=== PATIENT | female | born 1990 | race American Indian/Alaskan Native ===

== ENCOUNTER 2019-03-04 04:46 | Emergency (ER) | payer SELFPAY ==
[2019-03-04] MEDS ORDERED: GEODON IM ONE ×2 (05:15→05:33)
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
[2019-03-04] MEDS ORDERED: ATIVAN ONE (06:28)
[2019-03-04] MEDS ORDERED: ATIVAN IM ONE (06:30)
[2019-03-04 06:35] LABS: Bilirubin,Urine NEG (Negative); Blood,Urine NEG (Negative); Color,Urine Yellow (Yellow); Hyaline Casts,Urine 1 /LPF; Mucus,Urine 3+ /HPF; Protein,Urine <15 mg/dL mg/dL (Negative); Urobilinogen,Urine < 2.0 mg/dL (<2.0)
[2019-03-04 06:44] LABS: Amphetamine Screen,Urine PRESUMPTIVE NEGATIVE; Benzodiazepines Screen,Urine PRESUMPTIVE NEGATIVE; Cocaine Screen,Urine PRESUMPTIVE NEGATIVE; Methadone Screen,Urine PRESUMPTIVE NEGATIVE; Opiate Screen,Urine PRESUMPTIVE NEGATIVE
[2019-03-04 06:57] LABS: Cannabinoid Screen,Urine PRESUMPTIVE POSITIVE
[2019-03-04 07:54] LABS: Basophils % (Auto) 0.5 % (0.0-1.8); Eosinophils % (Auto) 0.1 % (0.0-4.3); Hematocrit 36.9 % (30.3-42.9); Hemoglobin 12.1 gm/dl (10.1-14.3); Lymphocytes # (Auto) 1.3 K/mm3 (1.2-5.4); Mean Corpuscular HGB Conc 33 % (30-34); Mean Corpuscular Volume 87 fl (79-97); Monocytes # (Auto) 0.4 K/mm3 (0.0-0.8); Monocytes % (Auto) 9.5 % (0.0-7.3); Platelet Count 212 K/mm3 (140-440); Red Blood Count 4.24 M/mm3 (3.65-5.03)
[2019-03-04 08:11] LABS: BUN/Creatinine Ratio 11; Blood Urea Nitrogen 8 mg/dL (7-17); Calcium 9.5 mg/dL (8.4-10.2); Hemolysis Index 11
[2019-03-04] MEDS ORDERED: K-DUR PO ONE (08:32)
--- NOTE | 2019-03-04 14:31 | Consultation ---
History of Present Illness - Reason for Consult Consult date: 03/04/19 Reason for consult: Mental Health Evaluation Requesting physician: JONATHAN HWANG - Chief Complaint Chief complaint: "I don't know how to handle disappointment" - History of Present Psychiatric Illness 28 y.o. AA female who presented to the ER for bizarre behavior. Today the patient was calm and cooperative during the assessment. She stated that she recently broke up with her girlfriend prior to coming to the ER. She stated that the breakup "stressed" her out. She stated that she could not sleep nor did she want to engage with her family, so she was brought to the ER. She stated that relationships does something to her when they do not work out. She was asked about previous relationships, she stated, "most of them do not end well." She stated that she have a good relationship with her mother and sister, but do not communicate with her father. She stated, "I want a relationship with him." Per collateral information from her mother/sister who was at the bedside Mayra/Bridgett they both stated that the patient do not accept disappointment well. They acknowledged that the patient had a similar situation when she broke up with her former boyfriend several years ago. The deny that the patient have been to a mental brittnee facility. The patient stated that she "struggle" with anxiety. She stated that she is willing to attend therapy sessions once discharged along with her family. The patient's family have been with her in the ER since her arrival. The patient denies SI/HI's and AVH's. She denies a poor appetite and erratic sleep. She denies alcohol consumption (etoh), but acknowledge that she smoke marijuana sometimes. Medications and Allergies Allergies Allergy/AdvReac Type Severity Reaction Status Date / Time shellfish derived Allergy Hives Verified 03/04/19 04:52 Home Medications Medication Instructions Recorded Confirmed Last Taken Type No Known Home Medications [No 03/04/19 03/04/19 Unknown History Reported Home Medications] Past psychiatric history - Past Medical History Past Medical History: No medical history Past Surgical History: No surgical history - past Psychiatric treatment and history psychiatric treatment history: Hx of Unspecified Anxiety DO per the patient. Fam hx of depression. - Social History Social history: lives with family Mental Status Exam - Vital signs Last Vital Signs Temp 98.2 F 03/04/19 04:52 Pulse 107 H 03/04/19 04:52 Resp 16 03/04/19 05:10 BP 140/93 03/04/19 04:52 Pulse Ox 100 03/04/19 05:10 - Exam Narrative exam: MSE: Appearance: calm, cooperative Behavior: regular eye contact Speech: regular rate and tone Mood: "okay" Affect: congruent to mood Thought Process: linear Thought Content: denies SI/HI's and AVH's Motor Activity: ambulatory Cognition: A/O x3 Insight: appropriate Judgment: appropriate Results Result Diagrams: 03/04/19 07:33 03/04/19 07:33 Abnormal lab results 03/04/19 03/04/19 03/04/19 Range/Units 07:33 07:33 07:33 RDW (13.2-15.2) % [place] % (Auto) (0.0-7.3) % Potassium 2.9 L* (3.6-5.0) mmol/L Salicylates < 0.3 L (2.8-20.0) mg/dL Acetaminophen < 5.0 L (10.0-30.0) ug/mL 03/04/19 Range/Units 07:33 RDW 13.0 L (13.2-15.2) % [place] % (Auto) 9.5 H (0.0-7.3) % Potassium (3.6-5.0) mmol/L Salicylates (2.8-20.0) mg/dL Acetaminophen (10.0-30.0) ug/mL All other labs normal. Assessment and Plan Assessment and plan: Impression: Adjustment DO. Unspecified Anxiety DO. Cannabis Use DO. No overt psychosis with the patient. Today the patient was calm and cooperative during the assessment. DDx: R/O Mood DO, PTSD, Substance Induced Mood/Psychosis Recommendation/Plan: Rescind 1013. Discussed generalized coping skills with the patient, she verbalized understanding. Dispo: The patient can follow up with [facility] for outpatient psy services (therapy). Staffed with Dr. Willy Zambrano.
[2019-03-04 14:56] VITALS: BP 120/87
== END 2019-03-04 16:44 | disposition home or self-care (01) ==
LOC: ED 04:46
DX: F29 Unspecified psychosis not due to a substance or known physiological condition (principal); F43.20 Adjustment disorder, unspecified; F12.10 Cannabis abuse, uncomplicated; Z91.018 Allergy to other foods
CPT/HCPCS: 36415; 80048; 80307; 81001; 84703; 85025; 96372; 99284; J2060; J3486; 80320; G0480

== ENCOUNTER 2019-03-08 02:24 | Emergency (ER) | payer SELFPAY ==
[2019-03-08 04:29] LABS: Basophils % (Auto) 0.6 % (0.0-1.8); Eosinophils % (Auto) 0.2 % (0.0-4.3); Hematocrit 43.2 % (30.3-42.9); Hemoglobin 14.1 gm/dl (10.1-14.3); Lymphocytes # (Auto) 1.1 K/mm3 (1.2-5.4); Lymphocytes % (Auto) 17.2 % (13.4-35.0); Mean Corpuscular HGB Conc 33 % (30-34); Mean Corpuscular Volume 86 fl (79-97); Monocytes # (Auto) 0.5 K/mm3 (0.0-0.8); Monocytes % (Auto) 8.6 % (0.0-7.3); Platelet Count 291 K/mm3 (140-440); Red Cell Distribution Width 12.8 % (13.2-15.2)
[2019-03-08] MEDS ORDERED: ATIVAN IM PRN ×2 (04:46→04:48)
[2019-03-08] MEDS ORDERED: HALDOL IM PRN ×2 (04:46→04:48)
[2019-03-08 04:47] LABS: Amphetamine Screen,Urine PRESUMPTIVE NEGATIVE; Benzodiazepines Screen,Urine PRESUMPTIVE NEGATIVE; Cocaine Screen,Urine PRESUMPTIVE NEGATIVE; Methadone Screen,Urine PRESUMPTIVE NEGATIVE; Opiate Screen,Urine PRESUMPTIVE NEGATIVE
--- NOTE | 2019-03-08 04:48 | Event Note ---
Date: 03/08/19 Medical screening examination: 28-year-old female presenting with psychotic behavior, mutism, hyperactive, cannot care for self, recently seen in this hospital for similar symptoms, thought to have PTSD and substance-induced mood of psychosis. Apparently, there was a recent bad breakup with his significant other, which may have prompted this. In the emergency room, the patient is afebrile, anxious, has an unremarkable exam, and does not demonstrate the ability to care for herself independently, or rational thought process. Question mood disorder, [place] II versus [place] I pathology. Patient placed on a hold, 1013 executed, psychiatric consultation requested. Vital Signs 03/08/19 03/08/19 02:53 04:21 Temperature 98.4 F Pulse Rate 103 H Respiratory 18 16 Rate Blood Pressure 139/98 O2 Sat by Pulse 98 98 Oximetry
[2019-03-08 04:49] LABS: BUN/Creatinine Ratio 17; Blood Urea Nitrogen 15 mg/dL (7-17); Calcium 10.1 mg/dL (8.4-10.2); Hemolysis Index 6
[2019-03-08 04:53] LABS: Bilirubin,Urine NEG (Negative); Blood,Urine NEG (Negative); Color,Urine Amber (Yellow); Mucus,Urine 3+ /HPF
[2019-03-08 05:33] LABS: Cannabinoid Screen,Urine PRESUMPTIVE POSITIVE
--- NOTE | 2019-03-08 08:13 | Emergency Department Report ---
ED Psych HPI - General Chief Complaint: Psych Stated Complaint: AMS Time Seen by Provider: 03/08/19 08:01 Source: family, police Mode of arrival: Ambulatory - History of Present Illness Initial Comments: Doug is a 28 yo female with hx of PTSD and substance-induced psychosis who presents with bizarre behavior. She tells me that her family initiated the ED evaluation because she was "telling the truth". She denies SI/HI or hallucinations. She denies physical complaints or discomfort. My colleague david placed patient on 1013 involuntary hold. Complaint: altered mental status -: Sudden Associated Psychiatric Symptoms: racing thoughts History of same: Yes Quality: constant Improves With: none Worsens With: none Context: recent drug abuse Treatments Prior to Arrival: placed on mental he, other (recent ED evaluation for similar presentation) - Related Data Home Medications Medication Instructions Recorded Confirmed Last Taken No Known Home Medications [No 03/04/19 03/08/19 Unknown Reported Home Medications] Allergies Allergy/AdvReac Type Severity Reaction Status Date / Time shellfish derived Allergy Hives Verified 03/04/19 04:52 ED Review of Systems ROS: Stated complaint: AMS Other details as noted in HPI Comment: All other systems reviewed and negative Constitutional: denies: diaphoresis, fever, malaise Respiratory: denies: cough Cardiovascular: denies: chest pain ED Past Medical Hx - Past Medical History Previous Medical History?: Yes Hx Psychiatric Treatment: Yes (Psychosis, Anxiety) - Surgical History Past Surgical History?: No - Social History Smoking Status: Never Smoker Substance Use Type: None - Medications Home Medications: Home Medications Medication Instructions Recorded Confirmed Last Taken Type No Known Home Medications [No 03/04/19 03/08/19 Unknown History Reported Home Medications] ED Physical Exam - General Limitations: No Limitations General appearance: alert, in no apparent distress - Head Head exam: Present: atraumatic, normocephalic - Eye Eye exam: Present: normal appearance - ENT ENT exam: Present: mucous membranes moist - Neck Neck exam: Present: normal inspection, full ROM - Respiratory Respiratory exam: Present: normal lung sounds bilaterally. Absent: respiratory distress, wheezes, rales, rhonchi - Cardiovascular Cardiovascular Exam: Present: regular rate, normal rhythm, normal heart sounds. Absent: systolic murmur, diastolic murmur, rubs, gallop - GI/Abdominal GI/Abdominal exam: Present: soft, normal bowel sounds. Absent: distended, tenderness, guarding, rebound - Extremities Exam Extremities exam: Present: normal inspection - Back Exam Back exam: Present: normal inspection - Neurological Exam Neurological exam: Present: alert, oriented X3 - Psychiatric Psychiatric exam: Present: depressed, flat affect, other (poor insight, evasive answers) - Skin Skin exam: Present: warm, dry, intact, normal color. Absent: rash ED Course Vital Signs 03/08/19 03/08/19 02:53 04:21 Temperature 98.4 F Pulse Rate 103 H Respiratory 18 16 Rate Blood Pressure 139/98 O2 Sat by Pulse 98 98 Oximetry ED Medical Decision Making - Lab Data Result diagrams: 03/08/19 04:13 03/08/19 04:13 Laboratory Results - last 24 hr 03/08/19 03/08/19 03/08/19 04:09 04:09 04:13 WBC RBC Hgb Hct MCV MCH MCHC RDW Plt Count Lymph % (Auto) [place] % (Auto) Eos % (Auto) Baso % (Auto) Lymph # [place] # Eos # Baso # Seg Neutrophils % Seg Neutrophils # Sodium Potassium Chloride Carbon Dioxide Anion Gap BUN Creatinine Estimated GFR BUN/Creatinine Ratio Glucose Calcium Magnesium Total Creatine Kinase HCG, Qual HCG, Quant Urine Color Faith Urine Turbidity Cloudy Urine pH 5.0 Ur Specific [place] 1.033 H Urine Protein 100 mg/dl Urine Glucose (UA) Neg Urine Ketones 80 Urine Blood Neg Urine Nitrite Neg Urine Bilirubin Neg Urine Urobilinogen 2.0 Ur Leukocyte Esterase Neg Urine WBC (Auto) 2.0 Urine RBC (Auto) 4.0 U Epithel Cells (Auto) 24.0 H Urine Mucus 3+ Salicylates < 0.3 L Urine Opiates Screen Presumptive negative Urine Methadone Screen Presumptive negative Acetaminophen Ur Barbiturates Screen Presumptive negative Ur Phencyclidine Scrn Presumptive negative Ur Amphetamines Screen Presumptive negative U Benzodiazepines Scrn Presumptive negative Urine Cocaine Screen Presumptive negative U Marijuana (THC) Screen Presumptive positive Drugs of Abuse Note Disclamer Plasma/Serum Alcohol 03/08/19 03/08/19 03/08/19 04:13 04:13 04:13 WBC RBC Hgb Hct MCV MCH MCHC RDW Plt Count Lymph % (Auto) [place] % (Auto) Eos % (Auto) Baso % (Auto) Lymph # [place] # Eos # Baso # Seg Neutrophils % Seg Neutrophils # Sodium 140 Potassium 4.2 D Chloride 99.8 Carbon Dioxide 24 Anion Gap 20 BUN 15 Creatinine 0.9 Estimated GFR > 60 BUN/Creatinine Ratio 17 Glucose 105 H Calcium 10.1 Magnesium Total Creatine Kinase HCG, Qual HCG, Quant Urine Color Urine Turbidity Urine pH Ur Specific [place] Urine Protein Urine Glucose (UA) Urine Ketones Urine Blood Urine Nitrite Urine Bilirubin Urine Urobilinogen Ur Leukocyte Esterase Urine WBC (Auto) Urine RBC (Auto) U Epithel Cells (Auto) Urine Mucus Salicylates Urine Opiates Screen Urine Methadone Screen Acetaminophen < 5.0 L Ur Barbiturates Screen Ur Phencyclidine Scrn Ur Amphetamines Screen U Benzodiazepines Scrn Urine Cocaine Screen U Marijuana (THC) Screen Drugs of Abuse Note Plasma/Serum Alcohol < 0.01 03/08/19 03/08/19 03/08/19 04:13 04:13 04:46 WBC 6.3 RBC 5.00 Hgb 14.1 Hct 43.2 H MCV 86 MCH 28 MCHC 33 RDW 12.8 L Plt Count 291 Lymph % (Auto) 17.2 [place] % (Auto) 8.6 H Eos % (Auto) 0.2 Baso % (Auto) 0.6 Lymph # 1.1 L [place] # 0.5 Eos # 0.0 Baso # 0.0 Seg Neutrophils % 73.4 H Seg Neutrophils # 4.7 Sodium Potassium Chloride Carbon Dioxide Anion Gap BUN Creatinine Estimated GFR BUN/Creatinine Ratio Glucose Calcium Magnesium 2.20 Total Creatine Kinase 133 HCG, Qual Negative HCG, Quant Urine Color Urine Turbidity Urine pH Ur Specific [place] Urine Protein Urine Glucose (UA) Urine Ketones Urine Blood Urine Nitrite Urine Bilirubin Urine Urobilinogen Ur Leukocyte Esterase Urine WBC (Auto) Urine RBC (Auto) U Epithel Cells (Auto) Urine Mucus Salicylates Urine Opiates Screen Urine Methadone Screen Acetaminophen Ur Barbiturates Screen Ur Phencyclidine Scrn Ur Amphetamines Screen U Benzodiazepines Scrn Urine Cocaine Screen U Marijuana (THC) Screen Drugs of Abuse Note Plasma/Serum Alcohol 03/08/19 04:46 WBC RBC Hgb Hct MCV MCH MCHC RDW Plt Count Lymph % (Auto) [place] % (Auto) Eos % (Auto) Baso % (Auto) Lymph # [place] # Eos # Baso # Seg Neutrophils % Seg Neutrophils # Sodium Potassium Chloride Carbon Dioxide Anion Gap BUN Creatinine Estimated GFR BUN/Creatinine Ratio Glucose Calcium Magnesium Total Creatine Kinase HCG, Qual HCG, Quant < 2 Urine Color Urine Turbidity Urine pH Ur Specific [place] Urine Protein Urine Glucose (UA) Urine Ketones Urine Blood Urine Nitrite Urine Bilirubin Urine Urobilinogen Ur Leukocyte Esterase Urine WBC (Auto) Urine RBC (Auto) U Epithel Cells (Auto) Urine Mucus Salicylates Urine Opiates Screen Urine Methadone Screen Acetaminophen Ur Barbiturates Screen Ur Phencyclidine Scrn Ur Amphetamines Screen U Benzodiazepines Scrn Urine Cocaine Screen U Marijuana (THC) Screen Drugs of Abuse Note Plasma/Serum Alcohol - Medical Decision Making Doug presents to the emergency department for bizarre behavior. Placed on 1013 involuntary hold for "acute psychosis and inability to care for self" by my colleague. I havereviewed labs. Urinalysis contaminated without indication of infection. UDS positive for marijuana. Labs and diagnostics otherwise within normal limits. Mrs. Arce is medically clear for psychiatric care. She does not have an acu te medical condition which needs further stabilization. Awaiting treatment recommendations from our psychiatric team. Critical care attestation.: If time is entered above; I have spent that time in minutes in the direct care of this critically ill patient, excluding procedure time. ED Disposition Clinical Impression: Acute psychosis, Marijuana abuse Disposition: [id number]/TX-[id number] ANOTHER TYPE HLTHCARE Is pt being admited?: No Does the pt Need Aspirin: No Condition: Stable
--- NOTE | 2019-03-08 11:23 | Consultation ---
History of Present Illness - Reason for Consult Consult date: 03/08/19 Reason for consult: Mental Health Evaluation Requesting physician: NIEVES HWANG - Chief Complaint Chief complaint: "The patient would not talk" - History of Present Psychiatric Illness 28 yo AA female who presented to ER for bizarre behavior. The patient is known to me. Today the patient would not talk during the assessment. Several attempts was made to engage the patient, but was unsuccessful. Will attempt to reassess the patient in 24 hours. Medications and Allergies Allergies Allergy/AdvReac Type Severity Reaction Status Date / Time shellfish derived Allergy Hives Verified 03/04/19 04:52 Home Medications Medication Instructions Recorded Confirmed Last Taken Type No Known Home Medications [No 03/04/19 03/08/19 Unknown History Reported Home Medications] Active Meds: Active Medications Haloperidol Lactate (Haldol) 5 mg IM Q6HR PRN PRN Reason: Agitation Haloperidol Lactate (Haldol) 5 mg IM Q6HR PRN PRN Reason: Agitation Lorazepam (Ativan) 2 mg IM Q4HR PRN PRN Reason: Agitation Last Admin: 03/08/19 04:59 Dose: 2 mg Documented by: Lorazepam (Ativan) 2 mg IM Q4HR PRN PRN Reason: Agitation Melatonin (Melatonin) 5 mg PO HS [facility] Past psychiatric history - Past Medical History Past Medical History: No medical history Past Surgical History: No surgical history - past Psychiatric treatment and history psychiatric treatment history: Hx of PTSD. Fam hx of depression. - Social History Social history: lives with family Mental Status Exam - Vital signs Last Vital Signs Temp 99.1 F 03/08/19 08:53 Pulse 99 H 03/08/19 08:53 Resp 16 03/08/19 04:21 BP 138/89 03/08/19 08:53 Pulse Ox 100 03/08/19 08:53 - Exam Narrative exam: Unable to complete the MSE because of the patient's condition. Results Result Diagrams: 03/08/19 04:13 03/08/19 04:13 Abnormal lab results 03/08/19 03/08/19 03/08/19 Range/Units 04:09 04:13 04:13 Hct (30.3-42.9) % RDW (13.2-15.2) % [place] % (Auto) (0.0-7.3) % Lymph # (1.2-5.4) K/mm3 Seg Neutrophils % (40.0-70.0) % Glucose (65-100) mg/dL Ur Specific [place] 1.033 H (1.003-1.030) U Epithel Cells (Auto) 24.0 H (0-13.0) /HPF Salicylates < 0.3 L (2.8-20.0) mg/dL Acetaminophen < 5.0 L (10.0-30.0) ug/mL 03/08/19 03/08/19 Range/Units 04:13 04:13 Hct 43.2 H (30.3-42.9) % RDW 12.8 L (13.2-15.2) % [place] % (Auto) 8.6 H (0.0-7.3) % Lymph # 1.1 L (1.2-5.4) K/mm3 Seg Neutrophils % 73.4 H (40.0-70.0) % Glucose 105 H (65-100) mg/dL Ur Specific [place] (1.003-1.030) U Epithel Cells (Auto) (0-13.0) /HPF Salicylates (2.8-20.0) mg/dL Acetaminophen (10.0-30.0) ug/mL All other labs normal. Assessment and Plan Assessment and plan: Impression: Cannabis Use DO. Today the patient would not talk during the assessment. Recommendation/Plan: Continue 1013 and reassess the patient in 24 hours. Dispo: The patient can referred to inpatient psy services. Will staff with Dr. Willy Zambrano.
[2019-03-08] MEDS: MELATONIN PO SCH (22:04)
--- NOTE | 2019-03-09 15:50 | Progress Note ---
Subjective - Reason for Consult Consult date: 03/09/19 Reason for consult: Psychiatry Follow-up - Chief Complaint Chief complaint: "Everyone is God" 28 yo AA female who presented to ER for bizarre behavior. The patient is known to me. Today the patient was calm, but delusional during the assessment. Her entire conversation was about "God." She stated that me the provider and everyone she mentioned was "God." She appeared preoccupied throughout the int erview. She paused often before she would answer questions, possible responding to some type of stimuli. She denies SI/HI's and VH's. She would not confirm or deny AH's. The 1013 process was explained to the patient's father Mr Bertrand Arce, he verbalized understanding. Mental Status Exam - Vital signs Last Vital Signs Temp 98.2 F 03/09/19 07:00 Pulse 72 03/09/19 07:00 Resp 18 03/09/19 07:00 BP 120/90 03/09/19 07:00 Pulse Ox 95 03/09/19 07:00 - Exam Narrative exam: MSE: Appearance: calm Behavior: regular eye contact Speech: regular rate and tone Mood: preoccupied Affect: congruent to mood Thought Process: circumstantial Thought Content: denies SI/HI's and AVH's, delusional, hyper temple Motor Activity: ambulatory Cognition: A/O x3 Insight: poor Judgment: poor Assessment and Plan Impression: Unspecified Psychosis. Cannabis Use DO. The patient maybe manic. Today the patient was calm, but delusional during the assessment. DDx: Bipolar DO with psychosis, Substance Induced Psychosis Recommendation/Plan: Continue 1013 and Melatonin 5 mg PO HS for sleep. Start Geodon 20 mg PO BID for mood/psychosis and Cogentin 0.5 mg PO BID EPS prevention. Attempted to discuss possible metabolic side effects of Geodon with the patient. Base line A1c/Lipid Panel ordered for the AM. Dispo: The patient was referred to inpatient psy services. Staffed with Dr. Willy Zambrano.
[2019-03-09] MEDS: COGENTIN PO SCH ×2 (18:58→23:09)
[2019-03-09] MEDS: GEODON PO SCH ×2 (18:59→23:09)
[2019-03-09] MEDS: MELATONIN PO SCH (23:10)
[2019-03-10] MEDS: COGENTIN PO SCH ×2 (11:00→23:12)
[2019-03-10] MEDS: GEODON PO SCH ×2 (11:00→23:12)
[2019-03-10] MEDS ORDERED: IBUPROFEN PO ONE (13:03)
[2019-03-10 15:06] LABS: Chol/HDL Ratio 2.77 %
--- NOTE | 2019-03-10 18:37 | Progress Note ---
Subjective - Reason for Consult Consult date: 03/10/19 Reason for consult: follow up - Chief Complaint Chief complaint: "My family is trying to teach me about self love." 28 yo AA female who presented to the ER for bizarre behavior. The patient is known to me. Today the patient was calm, but delusional during the assessment. She denies SI/HI's and VH's. She would not confirm or deny AH's. 1013 process was explained to the patient. Her family wants her to go to a private facility. Mental Status Exam - Vital signs Last Vital Signs Temp 98.3 F 03/10/19 07:00 Pulse 90 03/10/19 13:00 Resp 20 03/10/19 13:00 BP 111/61 03/10/19 13:00 Pulse Ox 98 03/10/19 13:00 - Exam Orientation: time, place, person Affect: other (indifferent) Mood: calm Thought content: other (would not discuss SI/HI) Thought Process: Loose Associations Perceptions: other (denies) Speech: normal rate and pattern Concentration: distractible Motor activity: restless Level of consciousness: alert Memory: Intact Sleep Symptoms: None Interaction: cooperative Assessment and Plan Impression: Unspecified Psychosis. Cannabis Use DO. The patient may be manic. Today the patient was calm, but delusional during the assessment. DDx: Bipolar DO with psychosis, Substance Induced Psychosis Recommendation/Plan: Continue 1013 and Melatonin 5 mg PO HS for sleep. Continue Geodon 20 mg PO BID for mood/psychosis and Cogentin 0.5 mg PO BID EPS prevention. Attempted to discuss possible metabolic side effects of Geodon with the patient. Dispo: The patient was referred to inpatient psy services. Her family wants her to go somewhere she can use [facility] Staffed with Dr. Willy Zambrano.
[2019-03-10] MEDS: MELATONIN PO SCH (23:12)
[2019-03-11 01:07] VITALS: BP 123/53
== END 2019-03-11 07:03 ==
LOC: EEVIPCON 02:24 → ED 02:24
DX: F12.10 Cannabis abuse, uncomplicated (principal); F43.10 Post-traumatic stress disorder, unspecified; Z91.013 Allergy to seafood
CPT/HCPCS: 36415; 80048; 80061; 80307; 81001; 82550; 83036; 83735; 84702; 84703; 85025; 96372; 99285; J1630; J2060; 80320; G0480